=== PATIENT | male | born 1985 | race Caucasian/White ===

== ENCOUNTER 2024-04-24 19:47 | Emergency (ER) | payer MEDICARE, MEDICAID ==
[~2024-04-24] VITALS: Ht 170.2 cm; Wt 63.6 kg
[2024-04-24 19:52] VITALS: BP 178/79; PULSE 73; RESP 18; TEMP 98.4; O2SAT 98
== END 2024-04-25 01:19 | disposition home or self-care (01) ==
LOC: ER 19:48
DX: M25.561 Pain in right knee (principal); W10.8XXA Fall (on) (from) other stairs and steps, initial encounter; Y93.89 Activity, other specified; Y92.89 Other specified places as the place of occurrence of the external cause; Y99.8 Other external cause status
CPT/HCPCS: 73560; 99283